=== PATIENT | female | born 1965 | race African-American/Black ===

== ENCOUNTER 2020-05-16 07:30 | Emergency (ER) | payer OTHER ==
[~2020-05-16] VITALS: Ht 165.1 cm; Wt 87.5 kg
[2020-05-16 07:39] VITALS: Ht 165.1 cm; Wt 87.5 kg
[2020-05-16 08:54] LABS: BASOPHIL % 0.5 % (0.2-1.3); PLATELET COUNT 299 x10^3mcL (179-408)
[2020-05-16 08:59] LABS: RED CELL DISTRIBUTION WIDTH 15.9 % (12.3-17.7)
[2020-05-16 09:19] LABS: CALCIUM 9.8 mg/dL (8.5-10.1); CARBON DIOXIDE 30.8 mmol/L (21-32); CREATININE SERUM 1.2 mg/dL (0.6-1.0)
[2020-05-16 09:23] LABS: ALBUMIN 4.1 g/dL (3.4-5.0); BILIRUBIN TOTAL 0.5 mg/dL (0.20-1.00)
[2020-05-16 09:29] VITALS: BP 172/70
[2020-05-16 11:03] LABS: microscopic required? YES; urine erythrocyte NEGATIVE (NEGATIVE)
== END 2020-05-16 09:29 | disposition short-term general hospital (02) ==
LOC: ED 07:30
PROVIDERS: Emergency Medicine
DX: G45.9 Transient cerebral ischemic attack, unspecified (principal); E11.65 Type 2 diabetes mellitus with hyperglycemia; I10 Essential (primary) hypertension; N17.9 Acute kidney failure, unspecified; D72.829 Elevated white blood cell count, unspecified; Z88.0 Allergy status to penicillin
CPT/HCPCS: 82962